=== PATIENT | male | born 1945 | race Caucasian/White ===

== ENCOUNTER 2017-09-30 08:41 | Inpatient (IN) | payer MEDICARE, BC ==
[~2017-09-30] VITALS: Ht 177.8 cm; Wt 95.3 kg
[~2017-09-30 08:41] MED LIST: ASPI-611 PO; ATOR40TA PO; CALC1TAB PO; CHOL10002 PO; COLACE PO; Cefazolin 2GM/50ML dext iso,osmotic IVPB IV ONE; FERR325T28 PO; acetaminophen 325mg tablet PO ONE; famotidine 20mg tablet PO ONE; gabapentin 300mg capsule PO ONE; metoclopramide 5 mg/ml inj IV ONE; oxyCODONE SR 10mg (sust. release) tab PO ONE; ringers solution, lacted 1,000 ML IV SCH; tranexamic acid inj. 1,000 MG in normal saline 100ml IV soln 90 ML IV ONE
[2017-09-30] MEDS ORDERED: bacitracin inj 150,000 UNIT in sodium chloride irrig. sol 3,000 ML IR ONE (09:30)
== END 2017-09-30 10:00 | disposition home or self-care (01) | DRG 554 ==
LOC: PAS IN 08:41 → EDSTATUS 10:45
PROVIDERS: ADMIT Specialist; ATTEND Specialist
DX: M16.12 Unilateral primary osteoarthritis, left hip (principal); E66.3 Overweight; Z96.641 Presence of right artificial hip joint; Z53.8 Procedure and treatment not carried out for other reasons; Z98.52 Vasectomy status; Z87.891 Personal history of nicotine dependence; Z79.899 Other long term (current) drug therapy; Z68.30 Body mass index [BMI] 30.0-30.9, adult
CPT/HCPCS: 36415; 86885; 86900; 86901; 87070; J0690; J7030; J7120

== ENCOUNTER 2017-10-15 05:41 | Inpatient (IN) | payer MEDICARE, BC ==
[2017-10-15] VITALS (16 sets, daily range): BP systolic 97–136; BP diastolic 47–88
[~2017-10-15] VITALS: Ht 177.8 cm; Wt 95.3 kg
[~2017-10-15 05:41] MED LIST changes: -metoclopramide 5 mg/ml inj IV ONE; -tranexamic acid inj. 1,000 MG in normal saline 100ml IV soln 90 ML IV ONE; +tranexamic acid inj. 1,500 MG in normal saline 100ml IV soln 85 ML IV ONE
[2017-10-15] MEDS ORDERED: ROPIVAcaine 0.5% (5mg/ml) 30ml vial ONE (06:28)
[2017-10-15 06:49] LABS: BASOPHILS % (AUTO) 0.6 % (0-1); EOSINOPHILS # (AUTO) 0.1 X10'3 (0-0.9); EOSINOPHILS % (AUTO) 1.5 % (0-6); LYMPHOCYTES # (AUTO) 1.5 X10'3 (1.1-4.8); LYMPHOCYTES % (AUTO) 23.5 % (21-51); MEAN CORPUSCULAR HEMOGLOBIN 30.2 PG (27.0-31.0); MEAN CORPUSCULAR HGB CONC 33.8 % (33.0-36.5); MEAN CORPUSCULAR VOLUME 89.1 FL (78-98); MEAN PLATELET VOLUME 8.4 FL (7.4-10.4); MONOCYTES # (AUTO) 0.4 X10'3 (0-0.9); MONOCYTES % (AUTO) 6.3 % (2-12); NEUTROPHILS # (AUTO) 4.4 X10'3 (1.8-7.7); NEUTROPHILS % (AUTO) 68.1 % (42-75); PRE OP HEMATOCRIT 40.3 % (42.0-52.0); PRE OP HEMOGLOBIN 13.6 g/dL (14.0-17.9); PRE OP PLATELET COUNT 159 X10'3 (140-440); RED BLOOD COUNT 4.52 X10'6 (4.70-6.10); RED CELL DISTRIBUTION WIDTH 13.8 % (11.5-14.5)
[2017-10-15] MEDS ORDERED: bacitracin inj 150,000 UNIT in sodium chloride irrig. sol 3,000 ML IR ONE (07:00)
[2017-10-15 07:17] LABS: ALBUMIN 3.6 G/DL (3.4-5.0); ALBUMIN/GLOBULIN RATIO 1.2 (1.1-1.5); ALKALINE PHOSPHATASE 115 IU/L (46-116); BLOOD UREA NITROGEN 19 MG/DL (7-18); BUN/CREATININE RATIO 13.2 (5.4-32.0); CALCIUM 8.8 MG/DL (8.5-10.1); CHLORIDE 106 MMOL/L (99-107); CREATININE 1.44 MG/DL (0.60-1.10); PRE OP ALT 25 U/L (30-65); PRE OP ANION GAP 9 (8-16); PRE OP AST 22 U/L (10-37); PRE OP BILIRUB, TOTAL 0.4 MG/DL (0.0-1.0); PRE OP GLUCOSE 94 MG/DL (70-104); PRE OP POTASSIUM 3.9 MMOL/L (3.4-5.1); PRE OP SODIUM 142 MMOL/L (135-145); TOTAL CARBON DIOXIDE 27.2 MMOL/L (24-32); TOTAL PROTEIN 6.7 G/DL (6.4-8.2); eGFR 48 ML/MIN
[2017-10-15] MEDS ORDERED: fentaNYL/PF 50MCG/1 ML 2ML syringe ONE (07:20)
[2017-10-15] MEDS ORDERED: MIDAZolam 1mg/ml 10ml vial ONE (07:20)
[2017-10-15] MEDS ORDERED: BUPIVAcaine/PF 7.5mg/ml (0.75%) 10ml vial ONE (07:25)
[2017-10-15 07:27] LABS: PRE OP PROTIME 10.7 SECONDS (9.0-12.0)
[2017-10-15] MEDS ORDERED: morphine /PF 1mg/ml 10ml inj. ONE (07:27)
[2017-10-15] MEDS ORDERED: propofol inj 20 ML IV ONE (07:59)
[2017-10-15] MEDS ORDERED: ringers solution, lacted 1,000 ML IV SCH (08:27)
[2017-10-15] MEDS ORDERED: naloxone 2mg/2ml inj 2 MG in normal saline 500ml IV soln 500 ML IV PRN (08:27)
[2017-10-15] MEDS ORDERED: proCHLORperazine 10 MG/2 ml inj IV PRN (08:30)
[2017-10-15] MEDS ORDERED: diphenhydrAMINE 50 mg/ml inj IV PRN (08:30)
[2017-10-15] MEDS ORDERED: meperidine/PF 25mg/ml syringe IV PRN ×3 (08:30)
[2017-10-15] MEDS ORDERED: ondansetron/PF 4mg/2ml inj IV PRN ×3 (08:30→09:35)
[2017-10-15] MEDS ORDERED: morphine 4 MG/ML inj SYRINge IV PRN ×2 (08:30)
[2017-10-15] MEDS ORDERED: ceFAZolin 1000mg inj ONE (08:56)
[2017-10-15] MEDS ORDERED: oxyCODONE/APAP 10/325mg tablet PO PRN (09:35)
[2017-10-15] MEDS ORDERED: bisacodyl 10mg suppository rectal RC PRN (09:35)
[2017-10-15] MEDS ORDERED: HYDROmorphone 1 mg/ml syringe IV PRN (09:35)
[2017-10-15] MEDS ORDERED: diphenhydrAMINE 25mg capsule PO PRN ×2 (09:35)
[2017-10-15] MEDS ORDERED: magnesium hydroxide 30ml (MOM) UD suspension PO PRN (09:35)
[2017-10-15] MEDS: ceFAZolin 1GM/D5W- ADD-VANTAGE 50 ML IV SCH (15:33)
[2017-10-15] MEDS: gabapentin 300mg capsule PO SCH ×2 (15:33→20:16)
[2017-10-15] MEDS: potassium cl 20mEq in 1/2 NS 1,000 ML IV SCH ×2 (15:36→17:34)
[2017-10-15] MEDS: ascorbic acid 500mg tablet PO SCH (20:15)
[2017-10-15] MEDS: atorvastatin 20mg tablet PO SCH (20:16)
[2017-10-15] MEDS: sennosides 8.6mg tablet PO SCH (20:16)
[2017-10-15] MEDS: oxyCODONE/APAP 10/325mg tablet PO PRN (20:20)
[2017-10-16] VITALS (8 sets, daily range): BP systolic 77–104; BP diastolic 39–56
[2017-10-16] MEDS: ceFAZolin 1GM/D5W- ADD-VANTAGE 50 ML IV SCH (00:40)
[2017-10-16] MEDS: potassium cl 20mEq in 1/2 NS 1,000 ML IV SCH ×3 (00:46→17:34)
[2017-10-16] MEDS: oxyCODONE/APAP 10/325mg tablet PO PRN (03:59)
[2017-10-16 05:19] LABS: BASOPHILS % (AUTO) 0.1 % (0-1); EOSINOPHILS # (AUTO) 0.1 X10'3 (0-0.9); EOSINOPHILS % (AUTO) 1.1 % (0-6); HEMATOCRIT 32.6 % (42.0-52.0); LYMPHOCYTES # (AUTO) 1.2 X10'3 (1.1-4.8); LYMPHOCYTES % (AUTO) 17.2 % (21-51); MEAN CORPUSCULAR HEMOGLOBIN 29.9 PG (27.0-31.0); MEAN CORPUSCULAR HGB CONC 33.7 % (33.0-36.5); MEAN CORPUSCULAR VOLUME 88.8 FL (78-98); MEAN PLATELET VOLUME 8.4 FL (7.4-10.4); MONOCYTES # (AUTO) 0.6 X10'3 (0-0.9); MONOCYTES % (AUTO) 8.4 % (2-12); NEUTROPHILS % (AUTO) 73.2 % (42-75); PLATELET COUNT 113 X10'3 (140-440); RED BLOOD COUNT 3.68 X10'6 (4.70-6.10); RED CELL DISTRIBUTION WIDTH 13.4 % (11.5-14.5); WHITE BLOOD COUNT 6.9 X10'3 (4.5-11.0)
[2017-10-16 06:00] LABS: ANION GAP 3 (8-16); CHLORIDE 104 MMOL/L (99-107); POTASSIUM 4.5 MMOL/L (3.5-5.1); SODIUM 136 MMOL/L (135-145); TOTAL CARBON DIOXIDE 28.7 MMOL/L (24-32)
[2017-10-16] MEDS: multivitamins, therapeutics tablet PO SCH (09:27)
[2017-10-16] MEDS: gabapentin 300mg capsule PO SCH ×3 (09:27→22:08)
[2017-10-16] MEDS: celeCOXIB 100mg capsule PO SCH ×2 (09:28→19:48)
[2017-10-16] MEDS: ascorbic acid 500mg tablet PO SCH ×2 (09:28→19:48)
[2017-10-16] MEDS: acetaminophen 325mg tablet PO PRN ×3 (09:34→22:08)
[2017-10-16] MEDS ORDERED: warfarin 10mg tablet PO ONE (10:00)
[2017-10-16] MEDS: sennosides 8.6mg tablet PO SCH (19:48)
[2017-10-16] MEDS: sodium chloride 0.45% 1,000 ML IV SCH (19:54)
[2017-10-16] MEDS ORDERED: celeCOXIB 100mg capsule PO SCH (20:00)
[2017-10-16] MEDS: atorvastatin 20mg tablet PO SCH (22:08)
[2017-10-17] MEDS: sodium chloride 0.45% 1,000 ML IV SCH ×3 (02:50→18:50)
[2017-10-17] MEDS: acetaminophen 325mg tablet PO PRN ×3 (05:30→21:19)
[2017-10-17 06:00] VITALS: BP 122/55
[2017-10-17 06:11] LABS: BASOPHILS % (AUTO) 0.6 % (0-1); EOSINOPHILS # (AUTO) 0.1 X10'3 (0-0.9); EOSINOPHILS % (AUTO) 1.6 % (0-6); HEMATOCRIT 30.1 % (42.0-52.0); HEMOGLOBIN 10.3 g/dl (14.0-17.9); LYMPHOCYTES # (AUTO) 1.5 X10'3 (1.1-4.8); LYMPHOCYTES % (AUTO) 17.8 % (21-51); MEAN CORPUSCULAR HEMOGLOBIN 30.3 PG (27.0-31.0); MEAN CORPUSCULAR HGB CONC 34.3 % (33.0-36.5); MEAN CORPUSCULAR VOLUME 88.4 FL (78-98); MEAN PLATELET VOLUME 8.9 FL (7.4-10.4); MONOCYTES # (AUTO) 0.6 X10'3 (0-0.9); MONOCYTES % (AUTO) 7.4 % (2-12); NEUTROPHILS % (AUTO) 72.6 % (42-75); PLATELET COUNT 109 X10'3 (140-440); RED CELL DISTRIBUTION WIDTH 13.3 % (11.5-14.5); WHITE BLOOD COUNT 8.2 X10'3 (4.5-11.0)
[2017-10-17 06:35] LABS: ALBUMIN 2.2 G/DL (3.4-5.0); ANION GAP 6 (8-16); BLOOD UREA NITROGEN 18 MG/DL (7-18); BUN/CREATININE RATIO 12.9 (5.4-32.0); CALCIUM 7.6 MG/DL (8.5-10.1); CHLORIDE 100 MMOL/L (99-107); CREATININE 1.39 MG/DL (0.60-1.10); GLUCOSE 127 MG/DL (70-104); SODIUM 132 MMOL/L (135-145); TOTAL CARBON DIOXIDE 25.9 MMOL/L (24-32); eGFR 50 ML/MIN
[2017-10-17 06:38] LABS: INR 1.7 INR; PROTHROMBIN TIME 17.2 SECONDS (9.0-12.0)
[2017-10-17] MEDS: lactose-reduced food (Ensure Enlive) - 237ml bottle PO SCH ×3 (08:00→18:00)
[2017-10-17] MEDS: celeCOXIB 100mg capsule PO SCH ×2 (08:41→21:13)
[2017-10-17] MEDS: multivitamins, therapeutics tablet PO SCH (08:41)
[2017-10-17] MEDS: gabapentin 300mg capsule PO SCH ×3 (08:41→21:14)
[2017-10-17] MEDS: ascorbic acid 500mg tablet PO SCH ×2 (08:41→21:14)
[2017-10-17] MEDS ORDERED: acetaminophen 325mg tablet PO PRN (09:35)
[2017-10-17 10:00] VITALS: BP 105/53
[2017-10-17] MEDS ORDERED: warfarin 4mg tablet PO ONE (10:00)
[2017-10-17] MEDS ORDERED: mag hydrox/Alum hydrox/simeth 30ml oral suspension PO PRN (15:55)
[2017-10-17 18:00] VITALS: BP 127/50
[2017-10-17] MEDS: atorvastatin 20mg tablet PO SCH (21:13)
[2017-10-17] MEDS: sennosides 8.6mg tablet PO SCH (21:14)
[2017-10-17 22:00] VITALS: BP 128/54
[2017-10-18] MEDS: acetaminophen 325mg tablet PO PRN (01:37)
[2017-10-18 02:00] VITALS: BP 118/64
[2017-10-18] MEDS: sodium chloride 0.45% 1,000 ML IV SCH (02:50)
[2017-10-18] MEDS ORDERED: HYDROcodone/acetaminophen 5mg/325mg tablet PO PRN (05:35)
[2017-10-18 06:23] LABS: BASOPHILS % (AUTO) 0.1 % (0-1); EOSINOPHILS # (AUTO) 0.2 X10'3 (0-0.9); EOSINOPHILS % (AUTO) 2.6 % (0-6); HEMATOCRIT 29.4 % (42.0-52.0); LYMPHOCYTES # (AUTO) 1.4 X10'3 (1.1-4.8); LYMPHOCYTES % (AUTO) 20.1 % (21-51); MEAN CORPUSCULAR VOLUME 88.1 FL (78-98); MEAN PLATELET VOLUME 8.9 FL (7.4-10.4); MONOCYTES # (AUTO) 0.5 X10'3 (0-0.9); MONOCYTES % (AUTO) 6.9 % (2-12); NEUTROPHILS # (AUTO) 4.9 X10'3 (1.8-7.7); NEUTROPHILS % (AUTO) 70.3 % (42-75); PLATELET COUNT 122 X10'3 (140-440); RED BLOOD COUNT 3.34 X10'6 (4.70-6.10); RED CELL DISTRIBUTION WIDTH 13.4 % (11.5-14.5); WHITE BLOOD COUNT 6.9 X10'3 (4.5-11.0)
[2017-10-18 06:51] VITALS: BP 99/54
[2017-10-18] MEDS: gabapentin 300mg capsule PO SCH (07:44)
[2017-10-18] MEDS: multivitamins, therapeutics tablet PO SCH (07:44)
[2017-10-18] MEDS: celeCOXIB 100mg capsule PO SCH (07:44)
[2017-10-18] MEDS: ascorbic acid 500mg tablet PO SCH (07:44)
[2017-10-18] MEDS ORDERED: ASPI-1264 PO (07:52)
[2017-10-18] MEDS: lactose-reduced food (Ensure Enlive) - 237ml bottle PO SCH (07:59)
[2017-10-18 09:06] LABS: INR 2.3 INR; PROTHROMBIN TIME 23.4 SECONDS (9.0-12.0)
== END 2017-10-18 10:23 | disposition home health service (06) | DRG 470 ==
LOC: PAS IN 05:41 → EDSTATUS 07:30 → ORTHO 4S 10:49
PROVIDERS: ADMIT Specialist; ATTEND Specialist
PROC: 0SRB02Z Replacement of Left Hip Joint with Metal on Polyethylene Synthetic Substitute, Open Approach (ICD-10-PCS; principal; 2017-10-15 07:17)
DX: M16.12 Unilateral primary osteoarthritis, left hip (principal); D62 Acute posthemorrhagic anemia; Z96.641 Presence of right artificial hip joint; E78.5 Hyperlipidemia, unspecified; Z98.52 Vasectomy status; Z79.899 Other long term (current) drug therapy; Z79.82 Long term (current) use of aspirin; Z87.891 Personal history of nicotine dependence
CPT/HCPCS: 36415; 73502; 80048; 80051; 80053; 85025; 85610; 85730; 86885; 86900; 86901; 87070; 97110; 97116; 97161; 97530; A6253; A6258; A6449; A6455; A7000; C1758; C1776; J0690; J2250; J2274; J2704; J2795; J3010; J3490; J7030; J7120

== ENCOUNTER 2019-11-16 08:34 | Emergency (ER) | payer MEDICARE, BC ==
[~2019-11-16] VITALS: Ht 177.8 cm; Wt 91.7 kg
[~2019-11-16 08:34] MED LIST changes: -Cefazolin 2GM/50ML dext iso,osmotic IVPB IV ONE; -acetaminophen 325mg tablet PO ONE; -famotidine 20mg tablet PO ONE; -gabapentin 300mg capsule PO ONE; -oxyCODONE SR 10mg (sust. release) tab PO ONE; -ringers solution, lacted 1,000 ML IV SCH; -tranexamic acid inj. 1,500 MG in normal saline 100ml IV soln 85 ML IV ONE
[2019-11-16] MEDS ORDERED: bisacodyl 10mg suppository rectal RC STA (10:39)
[2019-11-16] MEDS ORDERED: normal saline 1000ML IV soln IVB ONE (10:40)
[2019-11-16] MEDS: diatr meglu/diatrizoate 30ml oral sol.-(3 dose) bottle PO SCH ×3 (11:25→13:06)
[2019-11-16 11:26] LABS: BASOPHILS # (AUTO) 0.1 X10'3 (0-0.2); BASOPHILS % (AUTO) 0.5 % (0-1); EOSINOPHILS % (AUTO) 0.1 % (0-6); HEMATOCRIT 43.5 % (42.0-52.0); HEMOGLOBIN 14.5 g/dl (14.0-17.9); LYMPHOCYTES # (AUTO) 0.8 X10'3 (1.1-4.8); MEAN CORPUSCULAR HEMOGLOBIN 30.2 PG (27.0-31.0); MEAN CORPUSCULAR HGB CONC 33.3 g/dL (33.0-36.5); MEAN CORPUSCULAR VOLUME 90.7 FL (78-98); MEAN PLATELET VOLUME 8.6 FL (7.4-10.4); MONOCYTES # (AUTO) 0.5 X10'3 (0-0.9); MONOCYTES % (AUTO) 4.3 % (2-12); NEUTROPHILS # (AUTO) 9.4 X10'3 (1.8-7.7); NEUTROPHILS % (AUTO) 88.1 % (42-75); PLATELET COUNT 163 X10'3 (140-440); RED CELL DISTRIBUTION WIDTH 13.7 % (11.5-14.5); WHITE BLOOD COUNT 10.7 X10'3 (4.5-11.0)
[2019-11-16 11:44] LABS: ALANINE AMINOTRANSFERASE 33 U/L (12-78); ALBUMIN 4.4 G/DL (3.4-5.0); ALBUMIN/GLOBULIN RATIO 1.3 (1.1-1.5); ALKALINE PHOSPHATASE 96 IU/L (46-116); ANION GAP 7 (8-16); ASPARTATE AMINO TRANSFERASE 22 U/L (10-37); BLOOD UREA NITROGEN 22 MG/DL (7-18); BUN/CREATININE RATIO 13.2 (5.4-32.0); CALCIUM 9.6 MG/DL (8.5-10.1); CHLORIDE 104 MMOL/L (99-107); CREATININE 1.67 MG/DL (0.60-1.10); GLUCOSE 101 MG/DL (70-104); POTASSIUM 4.6 MMOL/L (3.5-5.1); SODIUM 140 MMOL/L (135-145); TOTAL CARBON DIOXIDE 28.8 MMOL/L (24-32); TOTAL PROTEIN 7.8 G/DL (6.4-8.2); eGFR 40 ML/MIN
[2019-11-16] MEDS ORDERED: iohexol 300mg/ml 100ml inj. ONE (13:04)
[2019-11-16] MEDS ORDERED: polyethylene glycol 3350 17gm powd pack PO STA (13:39)
[2019-11-16] MEDS ORDERED: lactulose 20gm/30ml cup PO ONE (13:40)
[2019-11-16 14:10] LABS: CLARITY,URINE CLEAR (Clear); COLOR,URINE YELLOW (Yellow); GLUCOSE, URINE NEGATIVE (Neg); KETONES,URINE NEGATIVE (Neg); NITRITES, URINE NEGATIVE (Neg); OCCULT BLOOD,URINE TRACE-INTACT (Neg); PROTEIN,URINE NEGATIVE (Neg); UROBILINOGEN,URINE 0.2 E.U/dL (0.2-1.0)
[2019-11-16 14:21] LABS: UA COLLECTION TYPE FOLEY CATH
[2019-11-16 14:22] LABS: MUCUS STRANDS FEW /LPF (Neg); SQUAMOUS EPITHELIAL CELL,UR FEW /LPF (FEW)
[2019-11-16 14:23] LABS: HYALINE CASTS 0-3 /LPF (NEGATIVE); RBC,URINE 0-2 /HPF (0-2); WBC,URINE 0-4 /HPF (0-4)
[2019-11-16 14:24] LABS: BACTERIA,URINE NONE SEEN /HPF (Neg)
[2019-11-16 14:28] LABS: LEUKOCYTE ESTERASE ,URINE NEGATIVE (Neg)
--- NOTE | 2019-11-16 16:38 | NUR ---
patient sitting on the cammode
--- NOTE | 2019-11-16 17:39 | NUR ---
was dc pt hr was 111 bp 160/86. spoke with myron regarding trying to disimpact the patient before discharge and he agreed to try. attempted disimpaction. 2 small amts was removed of soft stool. pt is back on commode trying to have a bm
[2019-11-16 17:59] VITALS: BP 163/83
== END 2019-11-16 18:01 | disposition home or self-care (01) ==
LOC: ER 08:35
DX: K59.00 Constipation, unspecified (principal); Z79.82 Long term (current) use of aspirin; Z79.899 Other long term (current) drug therapy
CPT/HCPCS: 36415; 74177; 80053; 81001; 85025; 96360; 99285; J7030; Q9963; Q9967

== ENCOUNTER 2023-08-06 10:06 | Outpatient (CLI) | payer BC ==
[2023-08-06] VITALS (20 sets, daily range): BP systolic 107–153; BP diastolic 50–91; PULSE 58–67
[~2023-08-06 10:06] MED LIST changes: -CALC1TAB PO; +CARSR60C PO; -COLACE PO; -FERR325T28 PO; +MULT-1085 PO
== END 2023-08-06 23:59 | disposition home or self-care (01) ==
LOC: CARD DIAG 10:06
PROVIDERS: ATTEND Family Medicine
DX: R55 Syncope and collapse (principal); R56.9 Unspecified convulsions
CPT/HCPCS: 93660

== ENCOUNTER 2023-09-09 08:19 | Outpatient (CLI) | payer BC | END 2023-09-09 23:59 | disposition home or self-care (01) | LOC: RAD 08:19 | PROVIDERS: ATTEND Family Medicine | DX: R55 Syncope and collapse (principal); R56.9 Unspecified convulsions | CPT/HCPCS: 95819 ==

== ENCOUNTER 2024-07-28 08:47 | Inpatient (IN) | payer BC ==
[~2024-07-28] VITALS: Ht 172.7 cm; Wt 97.0 kg
[2024-07-28] MEDS ORDERED: iohexol 350MG/ML 100ml bottle IV ONE ×2 (09:06→10:12)
--- NOTE | 2024-07-28 09:10 | ELECTROCARDIOGRAPH REPORT ---
[facility] Test Date: 2024-07-28 Test Time: 09:08:12 Pat Name: SO RODRÍGUEZ Department: [facility] Patient ID: [facility]-[id number] Room: ORTHO [facility] Gender: M Rn Surgery: : 1945 Requested By: KEISHA AMADOR Order Number: [id number] Reading MD: Dr. Spencer Grover Measurements Intervals [place] Rate: 72 P: 57 DE: 151 QRS: 23 QRSD: 97 T: 48 QT: 394 QTc: 432 Interpretive Statements Sinus rhythm Abnormal R-wave progression, early transition Electronically Signed On 07-30-2024 6:35:[address] Spencer Grover Please click the below link to view image of tracing.
[2024-07-28 09:16] LABS: BASOPHILS % (AUTO) 0.3 % (0-1); EOSINOPHILS # (AUTO) 0.1 X10'3 (0-0.9); EOSINOPHILS % (AUTO) 1.1 % (0-6); HEMATOCRIT 41.1 % (42.0-52.0); HEMOGLOBIN 13.7 g/dl (14.0-17.9); LYMPHOCYTES % (AUTO) 15.3 % (21-51); MEAN CORPUSCULAR HEMOGLOBIN 29.8 PG (27.0-31.0); MEAN CORPUSCULAR HGB CONC 33.2 g/dL (33.0-36.5); MEAN CORPUSCULAR VOLUME 89.7 FL (78-98); MEAN PLATELET VOLUME 8.8 FL (7.4-10.4); MONOCYTES # (AUTO) 0.3 X10'3 (0-0.9); NEUTROPHILS # (AUTO) 5.2 X10'3 (1.8-7.7); NEUTROPHILS % (AUTO) 79.3 % (42-75); PLATELET COUNT 140 X10'3 (140-440); RED BLOOD COUNT 4.58 X10'6 (4.70-6.10); RED CELL DISTRIBUTION WIDTH 13.9 % (11.5-14.5); WHITE BLOOD COUNT 6.6 X10'3 (4.5-11.0)
--- NOTE | 2024-07-28 09:23 | RADIOLOGY REPORT ---
EXAM: DI CHEST,SINGLE VIEW Indication: CP Technique: Single frontal view of the chest was obtained Comparison: DI CHEST,SINGLE VIEW on DOS: 11/14/22 FINDINGS: Lines and Tubes: None Lungs: No focal consolidation. Pleura: No effusion. No pneumothorax. Cardiomediastinal contours: Unremarkable Bones: No acute osseous abnormality. IMPRESSION: No acute cardiopulmonary disease.
[2024-07-28 09:40] LABS: ALBUMIN 3.8 G/DL (3.4-5.0); ANION GAP 10 (8-16); BLOOD UREA NITROGEN 28 MG/DL (7-18); BUN/CREATININE RATIO 19.2 (10.0-20.0); CALCIUM 8.6 MG/DL (8.5-10.1); CHLORIDE 104 MMOL/L (99-107); CREATININE 1.46 MG/DL (0.60-1.10); GLUCOSE 115 MG/DL (70-104); POTASSIUM 4.4 MMOL/L (3.5-5.1); PRO BRAIN NATRIURETIC PEPTIDE 149 PG/ML (0-450); SODIUM 140 MMOL/L (135-145); eCRCL 41 ML/MIN; eGFR 47 ML/MIN
--- NOTE | 2024-07-28 11:13 | RADIOLOGY REPORT ---
EXAM: CT CT HEAD HISTORY: dizziness COMPARISON: MR MRI HEAD on DOS: 11/15/22 TECHNIQUE: Axial images of the head were obtained and reformatted in coronal and sagittal planes. All CT scans at this medical facility are performed using dose modulation techniques as appropriate t o a performed exam including the following: Automated exposure control was utilized; adjustment of th e MA and/or KV according to patient size; and use of iterative reconstruction technique. CT Dose: CTDI volume is 48 mGy. Dose-length product is 907 mGy*cm FINDINGS: There is no evidence of acute intracranial hemorrhage, mass, mass effect midline shift. There is no h ydrocephalus or extra-axial fluid collection. There is a small area of encephalomalacia in the sales order specialist ior right parietal lobe. Daily-white matter differentiation is otherwise maintained. The visualized paranasal sinuses and mastoid air cells are clear. The calvarium is intact. IMPRESSION: 1. No acute intracranial process. HS:Y
--- NOTE | 2024-07-28 11:48 | RADIOLOGY REPORT ---
EXAM: CT CTA NECK/HEAD HISTORY: dizziness, old right occipital infarct COMPARISON: Noncontrast CT scan of the head from earlier same day. TECHNIQUE: High-resolution helical CT images of the head and neck were performed with 100 mL omnipaqu e 350 IV contrast utilizing CTA protocol. Sagittal and coronal reformatted images and 3-D MIP reconst ructions were obtained. This CT exam was performed using one or more of the following dose reduction techniques: Automated exposure control, adjustment of the mA and/or kV according to patient size, or use of iterative reconstruction technique. Radiation Dose : CT Dose: CTDI volume is 15.11 mGy. Dose-length product is 609.25 mGy*cm FINDINGS: [place] of [place]: No evidence of aneurysmal dilatation or significant stenosis about the ci rcle of Kay. The bilateral MCAs, ACAs, and roofer metal are widely patent. The cavernous and petrous ICAs are patent. Right carotid system: No significant stenosis of the CCA, ICA, or ECA origin. Left carotid system: No significant stenosis of the CCA, ICA, or ECA origin. There are calcifications of the carotid bulb. Vertebrobasilar: The bilateral vertebral arteries and basilar artery are patent. Miscellaneous: There are Postoperative changes of Bilateral cataract extraction surgery. There is mil d scarring and emphysema of the lung apices. There is severe cervical degenerative disc disease and f acet arthropathy. 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 The AP dimension of the spinal c anal is narrowed to 9 mm at C2-C3, 5 mm at C3-C4, 6.5 mm at C4-C5, 7.5 mm at C5-C6, 7.1 mm at C6-C7. There is multilevel significant neural foraminal stenosis in the cervical spine bilaterally IMPRESSION: 1. No aneurysmal dilatation or significant stenosis about the [place] of [place]. 2. No significant stenosis of the bilateral cervical carotid arteries or vertebral arteries. 3. 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 Recommend follow-up noncontrast MRI of the cervical s pine for better characterization as there is likely mass effect on the cervical spinal cord at multip le levels.
--- NOTE | 2024-07-28 12:12 | Physician Documentation ---
History of Present Illness ~ Chief Complaint: Dizziness Stated Complaint: DIZZINESS Time Seen by MD: 08:51 Mode of Arrival: EMS HPI Patient is here to be evaluated for dizziness. He said that a he was walking in abruptly became dizzy like the room is spinning he was nauseated and had trouble walking. He was given a dose of Zofran by the medics in the nausea is improved. He said he had something similar two years ago and was diagnosed with vertigo after being admitted with the MRI. He did not have a headache he denies slurred speech facial droop. At one point he had a little bit of difficulty speaking he was very mild and brief according to medics. Otherwise has been in his normal state of health. Medication Reconciliation Allergies: Coded Allergies: No Known Allergies (Unverified , 06/28/15) Scheduled Aspirin (Aspir 81), 1 TABLET PO DAILY, (Reported) Atorvastatin Calcium* (Lipitor*), 1 TABLET PO HS, (Reported) Cholecalciferol (Vitamin D3) (Vitamin D3), 1 TAB PO DAILY, (Reported) Diltiazem Hcl (Cardizem Sr), 60 MG PO BID Multivitamin (Multi Vitamin Daily), 1 TAB PO DAILY, (Reported) Past Medical History Past Medical History: High Cholesterol, *PULMONARY* Past Surgical History: noncontributory Alcohol Use: None Drug Use: none Lives In: Home Physical Exam Vital Signs: Temperature: 97.6, Source: Temporal, Heart Rate: 75, Respiratory Rate: 16, BP: 151/76, Pulse Oximetry: 99, Weight: 97.000 Physical Exam General: Awake and Alert, no acute distress. HEENT: Conjunctiva pink, Sclera clear, Mucus Membranes moist. Neck: Supple without masses and tenderness. Resp: Unlabored. Lungs clear to auscultation bilaterally. Heart: Regular Rate and rhythm, normal S1 and S2 without murmur, rub or gallop. Abdomen: Soft and non tender no organomegaly Extremities: No cyanosis,clubbing or edema. Skin: Warm and Dry. Neuro: GCS 15; no focal deficits Progress Results/Orders Results/Orders Orders - KEISHA AMADOR MD Chest,Single View (07/28/24 08:48) Monitor (07/28/24 08:48) Saline Lock (07/28/24 08:48) Oxygen (07/28/24 08:48) Ct Head (07/28/24 10:45) Cta Neck/Head (07/28/24 10:45) Completed Orders - KEISHA AMADOR MD Chest,Single View (07/28/24 08:48) Cbc/Diff (07/28/24 08:48) BMP (07/28/24 08:48) PBNP (07/28/24 08:48) Electrocardiogram (07/28/24 08:48) Hs Troponin I W Calculations (07/28/24 08:48) Ct Head (07/28/24 10:45) Cta Neck/Head (07/28/24 10:45) Iohexol 350mg/Ml 100ml (Omnipaque 350mg/ (07/28/24 09:06) Iohexol 350mg/Ml 100ml (Omnipaque 350mg/ (07/28/24 10:12) Vital Signs 07/28/24 07/28/24 07/28/24 08:52 09:06 09:12 Temp 97.6 Pulse 76 75 Resp 14 10 16 B/P (MAP) 163/77 151/76 (101) Pulse Ox 99 Laboratory Tests Test 07/28/24 09:05 White Blood Count 6.6 Red Blood Count 4.58 L Hemoglobin 13.7 L Hematocrit 41.1 L Mean Corpuscular Volume 89.7 Mean Corpuscular Hemoglobin 29.8 Mean Corpuscular Hemoglobin Concent 33.2 Red Cell Distribution Width 13.9 Platelet Count 140 Mean Platelet Volume 8.8 Neutrophils (%) (Auto) 79.3 H Lymphocytes (%) (Auto) 15.3 L Monocytes (%) (Auto) 4.0 Eosinophils (%) (Auto) 1.1 Basophils (%) (Auto) 0.3 Neutrophils # (Auto) 5.2 Lymphocytes # (Auto) 1.0 L Monocytes # (Auto) 0.3 Eosinophils # (Auto) 0.1 Basophils # (Auto) 0.0 CBC Comment Sodium Level 140 Potassium Level 4.4 Chloride Level 104 Carbon Dioxide Level 26.0 Anion Gap 10 Blood Urea Nitrogen 28 H Creatinine 1.46 H Estimated GFR/1.73 m2 47 BUN/Creatinine Ratio 19.2 Glucose Level 115 H Calcium Level 8.6 Troponin I High Sensitivity 8 Troponin I High Sens Percent Delta 0 Troponin I Hi Sens Absolute Change 0 Pro-B-Type Natriuretic Peptide 149 Albumin 3.8 Chemistry Comments Medical Decision Making Findings EKGs interpreted by me shows a sinus rhythm at 72 beats per minute axis is normal intervals are normal there was no ST elevation or depression Patient is here after an episode of dizziness he was nauseated had trouble walking he describes it as room spinning. It came on abruptly and it resolved abruptly. It is not typical for a peripheral vertigo I had him stand and ambulate he feels a little unsteady. He uses a cane at baseline but he just feels like he is balance is off. He has a history of AFib he is not anticoagulated. He is in a sinus rhythm in the ED. he also has high cholesterol. He is certainly at risk for stroke so he is going to be admitted for MRI. The CT scan of his brain was negative. CTA of the head and neck does not show any vascular abnormalities he has chronic findings of the cervical spine including some areas where there maybe spinal cord impingement. He is asymptomatic but this should have an MRI. He does not have signs of the neurosurgical emergency. Patient was given an aspirin in the ED. Departure Disposition: ADMITTED INPATIENT Impression: Primary Impression: CVA (cerebral vascular accident) Qualified Codes: I63.9 - Cerebral infarction, unspecified Additional Impressions: Ataxia Dizziness Condition: Stable Referrals: NO PRIMARY CARE PROVIDER (PCP) Education Educated: Patient Educated regarding: diagnosis, treatment, prognosis, need for follow up Signature Scribe Signature: no scribe Attestation: no scribe KEISHA AMADOR MD Jul 28, 2024 12:12
[2024-07-28] MEDS: aspirin 325mg tablet, delayed-release (Ecotrin) PO ONE (12:24)
[2024-07-28] MEDS ORDERED: magnesium hydroxide 30ml (MOM) UD suspension PO PRN (13:10)
[2024-07-28] MEDS ORDERED: magnesium sulf-water 4G/100mL 100 ML IV PRN (13:10)
[2024-07-28] MEDS ORDERED: mag hydrox/Alum hydrox/simeth 30ml oral suspension PO PRN (13:10)
[2024-07-28] MEDS ORDERED: HYDROcodone/acetaminophen 10/325mg tab PO PRN (13:10)
[2024-07-28] MEDS ORDERED: HYDROcodone/acetaminophen 5mg/325mg tablet PO PRN (13:10)
[2024-07-28] MEDS ORDERED: ondansetron/PF 4mg/2ml inj IV PRN (13:10)
[2024-07-28] MEDS ORDERED: potassium Cl 40MEQ/1/2NS 520ml 520 ML IV PRN (13:10)
[2024-07-28] MEDS ORDERED: acetaminophen 325mg tablet PO PRN ×2 (13:10)
[2024-07-28] MEDS ORDERED: magnesium sulf-water 2g/50mL 50 ML IV PRN (13:10)
[2024-07-28] MEDS ORDERED: potassium Cl 20 mEq SR tablet PO PRN ×2 (13:10)
[2024-07-28] MEDS: PERFLUTREN PROTEIN-A MICROSPHR (Optison) 0.22 MG/ML 3ML VIAL IV ONE (13:30)
[2024-07-28 13:32] LABS: BILIRUBIN,URINE NEGATIVE (Neg); CLARITY,URINE CLEAR (Clear); COLOR,URINE STRAW (Yellow); GLUCOSE, URINE NEGATIVE (Neg); KETONES,URINE NEGATIVE (Neg); LEUKOCYTE ESTERASE ,URINE NEGATIVE (Neg); NITRITES, URINE NEGATIVE (Neg); OCCULT BLOOD,URINE TRACE-INTACT (Neg); PROTEIN,URINE NEGATIVE (Neg); UROBILINOGEN,URINE 0.2 E.U/dL (0.2-1.0)
[2024-07-28 13:34] LABS: UA COLLECTION TYPE URINAL
[2024-07-28 13:41] LABS: BACTERIA,URINE NONE SEEN /HPF (Neg); MUCUS STRANDS NONE SEEN /LPF (Neg); RBC,URINE 0-2 /HPF (0-2); SQUAMOUS EPITHELIAL CELL,UR FEW /LPF (FEW); WBC,URINE NONE SEEN /HPF (0-4)
[2024-07-28] MEDS: normal saline 1000ml 1,000 ML IV SCH (13:50)
[2024-07-28 15:30] VITALS: BP 118/55; PULSE 72; RESP 16; TEMP 97.2; O2SAT 98
--- NOTE | 2024-07-28 15:36 | RADIOLOGY REPORT ---
[facility] MR MRI HEAD INDICATION: Eval for cerebellar stroke COMPARISON: CT CT HEAD on DOS: 07/28/24, MR MRI HEAD on DOS: 11/15/22 TECHNIQUE: Multiplanar, multisequence magnetic resonance imaging of the brain was performed without the use of i ntravenous contrast. FINDINGS: No evidence of acute or remote infarct. No intracranial hemorrhage. No mass effect. There is periventricular/deep white matter T2/FLAIR hyperintensity is nonspecific, but most commonly associated with chronic microvascular disease. The ventricles and sulci are normal in size for age. Clear basal cisterns. Flow voids in the major intracranial vessels are maintained. No abnormality of the orbits. Paranasal sinuses and mastoid air cells are clear. No abnormality of the visualized osseous structures and extracranial soft tissues. IMPRESSION: No acute infarct, intracranial hemorrhage, mass effect, or hydrocephalus.
[2024-07-28 18:00] VITALS: BP 178/88; PULSE 74; RESP 19; TEMP 98.3; O2SAT 98
--- NOTE | 2024-07-28 18:48 | HISTORY AND PHYSICAL ---
History & Physical Providers to CC ~ History of Present Illness Reason for Admit\Complaint: Near-syncope History of Present Illness This is a 78-year-old male who arrives in the ED with chief complaint of dizziness to the point where the patient became nauseated and had difficulty walking. He states that he initially started having dizziness two years ago and was diagnosed with AFib however the AFib was not causing him to be dizzy and he subsequently was diagnosed with vertigo and was referred to the [facility]- which helped with his vertigo symptoms however the patient has a significant episode today and was concerned he has no muscle weakness or deficits appreciated by the patient nor myself including expressive aphasia or slurred speech or difficulty with weakness upper and lower extremities. A CTA of the head and neck was obtained in the ED which was unremarkable and a head MRI as since has been obtained which is negative for any acute findings. 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 Allergies: Coded Allergies: No Known Allergies (Unverified , 06/28/15) Home Medications Home Medications Active Cardizem Sr (Diltiazem Hcl) 60 Mg Cap.sr.12h 60 Mg PO BID Reported Multi Vitamin Daily (Multivitamin) 1 Each Tablet 1 Tab PO DAILY 30 Days Vitamin D3 (Cholecalciferol (Vitamin D3)) 1,000 Unit Tablet 1 Tab PO DAILY Aspir 81 (Aspirin) 81 Mg Tablet.dr 1 Tablet PO DAILY Lipitor* (Atorvastatin Calcium) 40 Mg Tablet 1 Tablet PO HS Past Medical History Past Medical History Atrial fibrillation, hypercholesterolemia, hypotension, chronic kidney disease Past Surgical History Surgical History Comment Bilateral hip surgery, laser prostate surgery, cataract surgery, dental implant Family History Family History: FH: cancer FATHER FH: lymphoma brother Past Social History Social History Comment Quit smoking cigarettes in 1986, occasionally drinks wine, denies any illicit drug use. DNR code status ROS ROS Except for positives in the HPI the rest of the 14 point review systems is negative Exam Vitals: Vital Signs Date Time Temp Pulse Resp B/P (MAP) Pulse Ox O2 Delivery O2 Flow Rate FiO2 07/28/24 18:00 98.3 74 19 178/88 (118) 98 Room Air General: Gen. No acute distress alert and oriented 4 HEENT- no nystagmus appreciated Lungs clear to ascultation bilaterally, no wheezes rales or rhonchi appreciated Heart normal sinus rhythm no murmurs rubs or clicks noted Abdomen soft nontender bowel sounds are normoactive Lower extremities no clubbing cyanosis, nor edema appreciated bilaterally Diagnostic Data Last Recorded Lab Results: 07/28/2490407/28/24904 Problems: (1) Near syncope Additional Plan # near-syncope- Orthostatic vital signs are ordered Echocardiogram is in progress no official report yet is available CTA of the head and neck was negative for any significant stenosis MRI of the head negative for CVA/cerebellar CVA # atrial fibrillation- 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 The patient has decided on DNR code status Date of Service: Jul 28, 2024 Billing Provider: NATALIIA LEIGH DO Common Visit Codes: 73305-KDGVYWF INP/OBS CARE (HIGH) Secondary Visit Codes: 24350-QMYGDZZT CARE PLAN 30 MINUTES NATALIIA LEIGH DO Jul 28, 2024 18:48
[2024-07-28] MEDS: K and/or MAG REPLACEMENT MC SCH (20:00)
[2024-07-28 20:35] VITALS: BP 118/70; PULSE 59; RESP 16; TEMP 98.9; O2SAT 97
[2024-07-28] MEDS: diltiazem SR 60mg capsule (twice daily) PO SCH (21:45)
[2024-07-28] MEDS: docusate sod 100mg capsule PO SCH (21:46)
[2024-07-28] MEDS: atorvastatin 20mg tablet PO SCH (21:46)
[2024-07-28] MEDS: enoxaparin 30mg/0.3ml syringe SQ SCH (21:50)
[2024-07-28 21:57] VITALS: BP_SYST 113; BP_SYST 138; BP_SYST 143; BP_DIAS 47; BP_DIAS 68; BP_DIAS 75; PULSE 67; PULSE 73; PULSE 82; RESP 16; TEMP 97.7; O2SAT 97
[2024-07-29 04:50] LABS: BASOPHILS % (AUTO) 0.5 % (0-1); EOSINOPHILS # (AUTO) 0.1 X10'3 (0-0.9); EOSINOPHILS % (AUTO) 1.5 % (0-6); HEMATOCRIT 37.4 % (42.0-52.0); HEMOGLOBIN 12.6 g/dl (14.0-17.9); LYMPHOCYTES # (AUTO) 1.3 X10'3 (1.1-4.8); MEAN CORPUSCULAR HEMOGLOBIN 30.1 PG (27.0-31.0); MEAN CORPUSCULAR HGB CONC 33.6 g/dL (33.0-36.5); MEAN CORPUSCULAR VOLUME 89.3 FL (78-98); MEAN PLATELET VOLUME 8.7 FL (7.4-10.4); MONOCYTES # (AUTO) 0.5 X10'3 (0-0.9); MONOCYTES % (AUTO) 7.6 % (2-12); NEUTROPHILS # (AUTO) 4.7 X10'3 (1.8-7.7); NEUTROPHILS % (AUTO) 71.4 % (42-75); PLATELET COUNT 132 X10'3 (140-440); RED BLOOD COUNT 4.19 X10'6 (4.70-6.10); WHITE BLOOD COUNT 6.6 X10'3 (4.5-11.0)
[2024-07-29 05:06] LABS: ALANINE AMINOTRANSFERASE 25 U/L (12-78); ALBUMIN 3.2 G/DL (3.4-5.0); ALBUMIN/GLOBULIN RATIO 1.2 (1.1-1.5); ALKALINE PHOSPHATASE 89 IU/L (46-116); ANION GAP 9 (8-16); ASPARTATE AMINO TRANSFERASE 17 U/L (10-37); BILIRUBIN,TOTAL 0.6 MG/DL (0.1-1.0); BLOOD UREA NITROGEN 22 MG/DL (7-18); BUN/CREATININE RATIO 16.8 (10.0-20.0); CALCIUM 8.5 MG/DL (8.5-10.1); CHLORIDE 109 MMOL/L (99-107); CREATININE 1.31 MG/DL (0.60-1.10); GLUCOSE 93 MG/DL (70-104); MAGNESIUM 1.7 MG/DL (1.5-2.4); POTASSIUM 4.4 MMOL/L (3.5-5.1); SODIUM 144 MMOL/L (135-145); TOTAL PROTEIN 5.9 G/DL (6.4-8.2); eCRCL 44 ML/MIN; eGFR 53 ML/MIN
[2024-07-29 06:00] VITALS: BP 147/80; PULSE 74; RESP 17; TEMP 97.5; O2SAT 96
[2024-07-29] MEDS: cholecalciferol (vitamin D3) 1,000 unit (25mcg) tablet PO SCH (07:47)
[2024-07-29] MEDS: aspirin 81mg, enteric-coated 1 TAB TABLET.DR PO SCH (07:47)
[2024-07-29] MEDS: multivitamins, therapeutics tablet PO SCH (07:47)
[2024-07-29 08:00] VITALS: BP_SYST 134; BP_SYST 143; BP_SYST 145; BP_DIAS 74; BP_DIAS 78; BP_DIAS 80; PULSE 72; PULSE 76; PULSE 80
[2024-07-29 10:00] VITALS: BP 135/68; PULSE 58; RESP 17; TEMP 97.7; O2SAT 98
--- NOTE | 2024-07-29 18:02 | CARDIOLOGY REPORT ---
APPROVED REPORT EXAM: Comprehensive 2D, Doppler, and color-flow Echocardiogram. Patient Location: [facility] A Rhythm: SINUS Indications SYNCOPE DIZZINESS Sharepoint Web Developer: Jacob PARRISH MD Previous echo: [facility] 11-15-22, tTR, tMR, rvsp 50, LAE 2D Dimensions IVSd 0.9 (0.7-1.1cm) LVDd 4.3 cm PWd 0.8 (0.7-1.1cm) IVSs 1.1 (0.8-1.2cm) LVDs 2.9 (2.5-4.0cm) PWs 1.4 (0.8-1.2cm) LVOT Diameter 2.08 (1.8-2.4cm) LVEF(%) 60.9 (>50%) FS (%) 32.3 % SV 51.2 ml CO 3.9 L/min M-Mode Dimensions Left Atrium(MM) 4.59 (2.5-4.0cm) Aortic Root 2.92 (2.2-3.7cm) Aortic Cusp Exc 1.98 (1.5-2.0cm) Aortic Valve AoV Peak Neymar. 121.9 cm/s AoV VTI 27.0 cm AO Peak GR. 5.9 mmHg AO Mean GR. 3 mmHg LVOT VTI 21.95 cm LVOT Peak Neymar. 96.5 cm/s MARCEL(VTI)/BSA 2.76 cm2/m2 MARCEL (VTI) 2.76 cm2 Mitral Valve MV E Velocity 78.3 cm/s MV Peak Gr. 4 mmHg MV DECEL TIME 152 ms MV A Velocity 98.5 cm/s MV PHT 60 ms E/A Ratio 0.8 MVA (PHT) 3.67 cm2 MV VMax97.5 cm/s TDI Lateral E' P. V8.72 cm/s E/Lateral E' 9.0 Tricuspid Valve TR P. Velocity 231 cm/s RAP ESTIMATE 10 mmHg TR Peak Gr. 21 mmHg RVSP 31 mmHg Pulmonary Vein S1 Velocity 58.1 cm/s D2 Velocity 65.6 cm/s PVa Cfosfyfg69.0 cm/s PVa [id number] msec LEFT VENTRICLE Normal LV size and wall thickness. Overall systolic function is normal. LVEF is 60%. RIGHT VENTRICLE RV is normal size and function. RVSP is estimated at 31 mmHg. ATRIA Left atrium is mildly dilated. AORTIC VALVE Trileaflet AV appears mildld sclerotic without stenosis. No insufficiency. MITRAL VALVE Mild MV annular calcification without stenosis. Trace regurgitation. TRICUSPID VALVE TV appears structurally normal with trace regurgitation. PULMONIC VALVE Normal PV without stenosis, physiologic insufficiency. GREAT VESSELS The aortic root is normal in size. IVC is not well visualized. PERICARDIUM Normal pericardium. No effusion. Other Information Study Quality: Adequate but TDS subcostal view Conclusion Normal LV size and wall thickness. Overall systolic function is normal. LVEF is 60%. RV is normal size and function. RVSP is estimated at 31 mmHg. Left atrium is mildly dilated. Trileaflet AV appears mildld sclerotic without stenosis. No insufficiency. Mild MV annular calcification without stenosis. Trace regurgitation. TV appears structurally normal with trace regurgitation. Normal pericardium. No effusion.
--- NOTE | 2024-07-29 22:02 | DISCHARGE SUMMARY ---
Discharge Summary Providers to CC ~ Discharge Summary Admission Diagnosis: syncope Hospital Course DATE OF ADMISSION: 07/28/2024 DATE OF DISCHARGE: 07/29/2024 Discharge Diagnosis\Comment: Near-syncope, permanent atrial fibrillation, hyperlipidemia, hypertension, chronic stage 3 kidney disease Operations\Procedures: None Consultants: None Complications: None Condition on DC: Stable Continued Medications: Aspirin (Aspir 81) 81 Mg Tablet.dr 1 TABLET PO DAILY, TABLET Atorvastatin Calcium* (Lipitor*) 40 Mg Tablet 1 TABLET PO HS, TABLET Cholecalciferol (Vitamin D3) (Vitamin D3) 1,000 Unit Tablet 1 TAB PO DAILY Diltiazem Hcl (Cardizem Sr) 60 Mg Cap.sr.12h 60 MG PO BID for afib, #120 CAP.SR Multivitamin (Multi Vitamin Daily) 1 Each Tablet 1 TAB PO DAILY for 30 Days, #30 TAB 0 Refills Discharge Summary: I admitted Mr. Dorado with the following HPI:his is a 78-year-old male who arrives in the ED with chief complaint of dizziness to the point where the patient became nauseated and had difficulty walking. He states that he initially started having dizziness two years ago and was diagnosed with AFib however the AFib was not causing him to be dizzy and he subsequently was diagnosed with vertigo and was referred to the [facility]- which helped with his vertigo symptoms however the patient has a significant episode today and was concerned he has no muscle weakness or deficits appreciated by the patient nor myself including expressive aphasia or slurred speech or difficulty with weakness upper and lower extremities. A CTA of the head and neck was obtained in the ED which was unremarkable and a head MRI as since has been obtained which is negative for any acute findings. Orthostatic vital signs are ordered and physical therapy as well as an echocardiogram is being obtained as we speak and physical therapy is ordered as well, the patient is on a electronic device monitor. The patient did have a mild drop in his orthostatic vital signs on the evening of admission where his systolic blood pressure dropped from 138 sitting to 113 standing however the patient was asymptomatic and was not dizzy with this drop in his blood pressure. The patient worked with physical therapy and did have an again a 20 point drop in his systolic blood pressure from 124 seated to 104 standing however he was asymptomatic and did well with physical therapy. His echocardiogram demonstrated an LVEF of 60% no significant findings. The patient has rate controlled atrial fibrillation and was in sinus rhythm when I evaluated him. Gen. No acute distress alert and oriented 4 Lungs clear to ascultation bilaterally, no wheezes rales or rhonchi appreciated Heart normal sinus rhythm no murmurs rubs or clicks noted Abdomen soft nontender bowel sounds are normoactive Lower extremities no clubbing cyanosis, nor edema appreciated bilaterally The patient felt ready to be discharged and was medically cleared to be discharged on 07/29/2024 with the recommendations to follow up with Dr. Charli Adams aircraft machinist helper for a Holter monitor event monitor the patient has been taking his diltiazem SR daily recommended that he had increases this to b.i.d. dosing as per the recommendations of his aircraft machinist helper's The patient was seen and evaluated on day of discharge. Time spent on discharge 35 minutes The patient recovered sooner than to be expected with near-syncope- with a workup for a cerebellar stroke *Problems/Diagnosis: (1) Near syncope Total Time Spent on D/C: > 30 Minutes Date of Service: Jul 29, 2024 Billing Provider: NATALIIA LEIGH DO Common Visit Codes: 34329-BZJ/OBS DISCH DAY >30min NATALIIA LEIGH DO Jul 29, 2024 22:02
== END 2024-07-29 13:52 | disposition home health service (06) | DRG 149 ==
LOC: ER 08:47 → ED HOLD 13:13 → ORTHO 4S 15:30
PROVIDERS: ADMIT Family Medicine; ATTEND Family Medicine
PROC: B3251ZZ Computerized Tomography (CT Scan) of Bilateral Common Carotid Arteries using Low Osmolar Contrast (ICD-10-PCS; principal; 2024-07-28)
PROC: B32G1ZZ Computerized Tomography (CT Scan) of Bilateral Vertebral Arteries using Low Osmolar Contrast (ICD-10-PCS; 2024-07-28)
PROC: B32R1ZZ Computerized Tomography (CT Scan) of Intracranial Arteries using Low Osmolar Contrast (ICD-10-PCS; 2024-07-28)
PROC: B3281ZZ Computerized Tomography (CT Scan) of Bilateral Internal Carotid Arteries using Low Osmolar Contrast (ICD-10-PCS; 2024-07-28)
DX: R42 Dizziness and giddiness (principal); I48.21 Permanent atrial fibrillation; N18.4 Chronic kidney disease, stage 4 (severe); I12.9 Hypertensive chronic kidney disease with stage 1 through stage 4 chronic kidney disease, or unspecified chronic kidney disease; Z66 Do not resuscitate; E78.00 Pure hypercholesterolemia, unspecified; Z79.82 Long term (current) use of aspirin; Z79.899 Other long term (current) drug therapy
CPT/HCPCS: 36415; 70450; 70496; 70498; 70551; 71045; 80048; 80053; 81001; 83735; 83880; 84484; 85025; 87081; 93005; 93306; 96360; 96372; 97161; 97530; 99285; G0378; J1650; J7030; Q9967